=== PATIENT | female | born 1945 | race Hispanic/Latino ===

== ENCOUNTER 2018-04-01 07:56 | Outpatient (CLI) | payer MEDICARE | END 2018-04-01 07:57 | disposition home or self-care (01) | LOC: RAD 07:56 ==

== ENCOUNTER 2018-04-11 10:18 | Outpatient (CLI) | payer MEDICARE | END 2018-04-11 10:19 | disposition home or self-care (01) | LOC: RAD 10:18 ==

== ENCOUNTER 2018-04-19 10:38 | Outpatient (CLI) | payer MEDICARE | END 2018-04-19 10:39 | disposition home or self-care (01) | LOC: RAD 10:38 ==

== ENCOUNTER 2018-05-16 10:49 | Outpatient (CLI) | payer MEDICARE | END 2018-05-16 10:50 | disposition home or self-care (01) | LOC: CARDIO 10:49 ==